=== PATIENT | male | born 1990 | race Caucasian/White ===

== ENCOUNTER 2020-10-22 07:53 | Inpatient (IN) | payer BC, MEDICAID ==
[2020-10-22] VITALS (14 sets, daily range): BP systolic 94–145; BP diastolic 61–102
[~2020-10-22] VITALS: Ht 172.7 cm; Wt 88.5 kg
--- NOTE | 2020-10-22 07:58 | NUR ---
Dr Larson at the bedside for MSE.
[2020-10-22] MEDS ORDERED: DILTIAZEM HCL 25 MG IV IV ONE (08:00)
[2020-10-22] MEDS ORDERED: IV NORMAL SALINE 1000 ML BAG IV ONE ×2 (08:00→08:45)
[2020-10-22] MEDS ORDERED: DILTIAZEM HCL 25 MG IV ONE (08:10)
[2020-10-22 08:15] LABS: BASOPHILS % (AUTO) 0.4 % (0.0-2.0); EOSINOPHILS % (AUTO) 0.4 % (0.0-7.0); HEMATOCRIT 50.6 % (36.7-47.1); HEMOGLOBIN 17.1 g/dL (12.5-16.3); LYMPHOCYTES # (AUTO) 2.3 K/uL (20.0-40.0); LYMPHOCYTES % (AUTO) 23.9 % (20.5-51.5); MEAN CORPUSCULAR HEMOGLOBIN 28.7 uug (23.8-33.4); MEAN CORPUSCULAR HGB CONC 34 g/dL (32.5-36.3); MEAN CORPUSCULAR VOLUME 84.7 fL (73.0-96.2); MONOCYTES % (AUTO) 10.6 % (0.0-11.0); NEUTROPHILS # (AUTO) 6.1 K/uL (1.8-8.9); NEUTROPHILS % (AUTO) 64.7 % (38.5-71.5); PLATELET COUNT (AUTO) 252 K/uL (152-348); RED BLOOD CELL COUNT(AUTO) 5.97 MIL/uL (4.06-5.63); WHITE BLOOD COUNT (AUTO) 9.5 K/uL (3.6-10.2)
[2020-10-22] MEDS ORDERED: DILTIAZEM HCL IV 125 MG in IV DEXTROSE 5% 100 ML IV ONE (08:15)
[2020-10-22 08:22] LABS: CREATININE 1.3 mg/dL (0.6-1.3); POTASSIUM 3.4 mmol/L (3.5-5.1)
[2020-10-22 08:27] LABS: BILIRUBIN,DIRECT 0.2 mg/dL (0.0-0.2); BILIRUBIN,TOTAL 0.7 mg/dL (0.2-1.0); TOTAL PROTEIN, SERUM 8.4 g/dL (6.4-8.2)
--- NOTE | 2020-10-22 08:40 | NUR ---
Cardizem incresed to 10mg/hr. BP is 134/74, HR 125.
--- NOTE | 2020-10-22 08:59 | NUR ---
COVID 19 nasal swab collected and sent to LAB.
--- NOTE | 2020-10-22 09:04 | NUR ---
Incresed Cardizem to 15 mg/hr, HR A FIB @ 131, BP 118/72. Pt denies chest pain/discomfort and SOB.
--- NOTE | 2020-10-22 09:08 | NUR ---
Dr Garg at the bedside for admit.
--- NOTE | 2020-10-22 09:36 | NUR ---
Dr watkins medical exam in progress.
--- NOTE | 2020-10-22 09:40 | NUR ---
Per Dr Finch if pt's HR>130 and sustained, it's ok to increase Cardizem to 20 mg/hr.
[2020-10-22] MEDS ORDERED: POTASSIUM CHLORIDE 20 MEQ POWDER PACKET PO ONE (09:45)
[2020-10-22] MEDS: CHLORDIAZEPOXIDE HCL 25 MG CAPSULE PO SCH ×2 (10:20→18:13)
[2020-10-22] MEDS ORDERED: ACETAMINOPHEN 325 MG TABLET PO PRN (10:30)
[2020-10-22] MEDS ORDERED: ONDANSETRON 4 MG/2 ML VIAL IV PRN (10:30)
--- NOTE | 2020-10-22 10:35 | NUR ---
Patient received from ER. Transferred from [facility] to bed independently with no gait disturbances. Patient placed on monitor, rhythm afib, oxygen saturation wnl, afebrile, and hemodynamically stable. Patient oriented to room.
[2020-10-22] MEDS: POTASSIUM CHLORIDE 50 ML IV SCH ×2 (10:45→11:30)
[2020-10-22] MEDS ORDERED: THIAMINE HCL INJ 100 MG in IV DEXTROSE 5% 50 ML IV SCH (11:00)
[2020-10-22] MEDS: FOLIC ACID 1 MG TABLET PO SCH (11:30)
[2020-10-22] MEDS: DILTIAZEM HCL IV 125 MG in IV NORMAL SALINE 100 ML IV PRN ×2 (11:31→16:59)
[2020-10-22 12:01] LABS: *AMPHETAMINE, URINE NEGATIVE (NEGATIVE); *CANNABINOID, URINE NEGATIVE (NEGATIVE); *COCCAINE, URINE NEGATIVE (NEGATIVE); *OPIATE, URINE NEGATIVE (NEGATIVE); *PHENCYCLIDINE SCREEN,URINE NEGATIVE (NEGATIVE)
--- NOTE | 2020-10-22 14:45 | NUR ---
Patient converted to sinus rhythm on the monitor. Rate 83 bpm.
--- NOTE | 2020-10-22 19:00 | NUR ---
Received patient from AM nurse. Patient was on Cardizem 5mg but drip was turned off at 1900 by AM nurse. Patient A&Ox4 and cooperative. Patient on room air - saturation 98%. No reports of chest pain, palpitations, or SOB. Sinus Rhythm on the monitor. Lung sounds clear bilaterally. Good urine output. Safety measures in place.
--- NOTE | 2020-10-22 19:08 | NUR ---
Patient continues to be in sinus rhythm at this time, cardizem turned off. Patient continues to be on room air, saturation is 98%. No distress noted at this time, patient in bed resting. All needs met. 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
--- NOTE | 2020-10-22 21:04 | NUR ---
Contacted Dr. Friedman regarding patients Librium dosage & possible changes. Was given a One Time 25mg order and told to increase his dosage from 25mg TID --- to 50mg TID.
[2020-10-22] MEDS ORDERED: CHLORDIAZEPOXIDE HCL 25 MG CAPSULE PO SCH (21:15)
[2020-10-23] VITALS (16 sets, daily range): BP systolic 101–133; BP diastolic 66–92
[2020-10-23 04:52] LABS: BASOPHILS % (AUTO) 0.3 % (0.0-2.0); EOSINOPHILS # (AUTO) 0.1 K/uL (0.0-0.7); EOSINOPHILS % (AUTO) 1.5 % (0.0-7.0); HEMOGLOBIN 16.5 g/dL (12.5-16.3); LYMPHOCYTES # (AUTO) 1.7 K/uL (20.0-40.0); LYMPHOCYTES % (AUTO) 27.6 % (20.5-51.5); MEAN CORPUSCULAR HEMOGLOBIN 28.2 uug (23.8-33.4); MEAN CORPUSCULAR HGB CONC 33 g/dL (32.5-36.3); MEAN CORPUSCULAR VOLUME 85.3 fL (73.0-96.2); MONOCYTES # (AUTO) 0.7 K/uL (2.0-10.0); MONOCYTES % (AUTO) 12.3 % (0.0-11.0); NEUTROPHILS # (AUTO) 3.5 K/uL (1.8-8.9); NEUTROPHILS % (AUTO) 58.3 % (38.5-71.5); PLATELET COUNT (AUTO) 200 K/uL (152-348); RED BLOOD CELL COUNT(AUTO) 5.86 MIL/uL (4.06-5.63); WHITE BLOOD COUNT (AUTO) 6.1 K/uL (3.6-10.2)
[2020-10-23 05:07] LABS: BILIRUBIN,TOTAL 0.6 mg/dL (0.2-1.0); CREATININE 1.1 mg/dL (0.6-1.3); MAGNESIUM 2.3 mg/dL (1.8-2.4); PHOSPHOROUS 3.8 mg/dL (2.5-4.9); POTASSIUM 3.7 mmol/L (3.5-5.1); TOTAL PROTEIN, SERUM 7.6 g/dL (6.4-8.2)
--- NOTE | 2020-10-23 06:41 | NUR ---
Sinus Rhythm entire night. 1000mL urine output. No reports of chest pain, SOB, palpitations. Just minor anxiousness - Librium given + dose adjusted.
[2020-10-23] MEDS ORDERED: POTASSIUM CHLORIDE 20 MEQ POWDER PACKET PO ONE (07:45)
--- NOTE | 2020-10-23 08:17 | NUR ---
PT. WAS SEEN BY NAT GUTHRIE
[2020-10-23] MEDS: FOLIC ACID 1 MG TABLET PO SCH (08:20)
[2020-10-23] MEDS: CHLORDIAZEPOXIDE HCL 25 MG CAPSULE PO SCH ×2 (08:20→12:55)
[2020-10-23] MEDS ORDERED: THIAMINE HCL 100 MG TABLET PO SCH (11:00)
[2020-10-23] MEDS ORDERED: OMEGA-3 FATTY ACIDS/FISH OIL CAPSULE PO SCH (11:00)
--- NOTE | 2020-10-23 11:30 | NUR ---
Clinical Social Work Note Met with this 29 year old man who was referred for social work consult due to alcohol dependence and withdrawal. Patient was seen in his room in ICU bed 3 where he present with euthymic mood and is alert and oriented x4. When discussing his alcohol use patient states " this is a wake up call". He says he drinks a half bottle of red wine daily and a bottle over the weekend. He has stopped drinking in the past for three weeks at a time when his PCP told him his live enzymes were elevated. he has a wine subscription and his wine is delivered to his home. He refused referrals for treatment and says he " likes drinking". His maternal grandmother also is alcoholic. Patient denies any depression and has no suicidal or homicidal ideation. He admits his drinking has increased with the pandemic. He said he did mention ot one of his friends that " they should attend an AA meeting". This clinician reinforced this idea with patient. Patient is employed in emergency dispatch and say he has a supportive . His drinks less than he does. Patient does not appear to have any additional needs for social work and will return home once he is medically stable.
--- NOTE | 2020-10-23 13:30 | NUR ---
Pt.was seen by .
[2020-10-23] MEDS ORDERED: Folic Acid PO (14:28)
[2020-10-23] MEDS ORDERED: THIA100T13 PO (14:28)
[2020-10-23] MEDS ORDERED: CHLO25CA22 PO (14:28)
[2020-10-23] MEDS ORDERED: OMEG1CAP PO (14:40)
--- NOTE | 2020-10-23 15:45 | NUR ---
Pt.was d/c home, pt.denies any SOB or CP,denies any pain. Addendum: 10/23/20 at 1556 by JANEL BERMAN RN went home by car, pick him up.
== END 2020-10-23 15:45 | disposition home or self-care (01) | DRG 309 ==
LOC: ER 07:53 → CCU 10:00
PROVIDERS: ADMIT Internal Medicine; ATTEND Internal Medicine
PROC: 05H633Z Insertion of Infusion Device into Left Subclavian Vein, Percutaneous Approach (ICD-10-PCS; principal; 2020-10-22)
PROC: B547ZZA Ultrasonography of Left Subclavian Vein, Guidance (ICD-10-PCS; 2020-10-22)
DX: I48.0 Paroxysmal atrial fibrillation (principal); D68.69 Other thrombophilia; F10.139 Alcohol abuse with withdrawal, unspecified; E78.5 Hyperlipidemia, unspecified; Z83.3 Family history of diabetes mellitus; Z20.822 Contact with and (suspected) exposure to COVID-19; Y90.9 Presence of alcohol in blood, level not specified; F12.10 Cannabis abuse, uncomplicated; M94.0 Chondrocostal junction syndrome [Tietze]
CPT/HCPCS: 36415; 70030-TC; 71045; 83690; 83735; 84100; 85025; 93005; 93307; A4663; G0378; J3411; J3480; J3490; J7030; J7040; J7060; U0003

== ENCOUNTER 2024-03-11 22:14 | Emergency (ER) | payer SELFPAY ==
[~2024-03-11] VITALS: Ht 172.7 cm; Wt 68.0 kg
[~2024-03-11 22:14] MED LIST: CHLO25CA22 PO; Folic Acid PO; OMEG1CAP PO; THIA100T13 PO
[2024-03-11] MEDS ORDERED: OLAN10TA3 PO (22:50)
[2024-03-11] MEDS: OLANZAPINE 5 MG TABLET PO ONE (22:52)
[2024-03-11] MEDS: predniSONE 50 MG TABLET PO ONE (22:52)
[2024-03-11 23:07] VITALS: BP 129/75; TEMP 98.6; O2SAT 98
== END 2024-03-11 23:07 | disposition home or self-care (01) ==
LOC: ER 22:18
DX: R21 Rash and other nonspecific skin eruption (principal); Z79.899 Other long term (current) drug therapy; I48.91 Unspecified atrial fibrillation; Z60.2 Problems related to living alone
CPT/HCPCS: 99283; J7512; A4606; A4663